=== PATIENT | female | born 1960 | race Caucasian/White ===

== ENCOUNTER 2019-04-04 13:24 | Emergency (ER) | payer MEDICAID ==
[~2019-04-04] VITALS: Ht 160 cm; Wt 72.7 kg
[2019-04-04] MEDS ORDERED: INSHUMULINR (13:55)
[2019-04-04] MEDS ORDERED: KAPSPARGO SPRI100 MG PO (13:56)
[2019-04-04] MEDS ORDERED: TIROSINT137 MC1 PO (13:56)
[2019-04-04] MEDS ORDERED: PRAVACHOL 20MG20 MG PO (13:57)
[2019-04-04] MEDS ORDERED: EFFEXOR-XR150 MG PO (13:57)
[2019-04-04] MEDS ORDERED: GLUCOPHAGE500 MG/TAB PO (13:57)
[2019-04-04] MEDS ORDERED: PRINZIDE 25 MG-1 TAB PO (13:58)
[2019-04-04] MEDS ORDERED: NITROSTAT0.4 MG/TAB (13:58)
[2019-04-04] MEDS ORDERED: PLAVIX 75MG TAB75 MG PO (13:58)
[2019-04-04] MEDS ORDERED: NEURONTIN100 MG/CAP PO (13:59)
[2019-04-04] MEDS ORDERED: ISORDIL 20MG20 M1 (14:00)
[2019-04-04] MEDS ORDERED: KCL100IV PO (14:00)
[2019-04-04] MEDS ORDERED: NATURAL MAGNES200 MG PO (14:01)
[2019-04-04] MEDS ORDERED: ASPIRIN 32325 MG/TAB PO (14:01)
[2019-04-04 15:16] LABS: COLLECTION METHOD CLEAN CATCH
[2019-04-04 15:24] LABS: BASO % 0.5 % (0.0-2.0); EOS # 0.1 (0.0-0.7); EOS % 0.6 % (0-4.0); GRAN # 5.8 (1.4-6.5); GRAN % 66.9 % (42.2-75.2); LYMPH # 2.2 (1.2-3.4); LYMPH % 25.9 % (20.0-51.0); MEAN CELL VOLUME 88 fl (80.0-100.0); MEAN CORPUSCULAR HEMOGLOBIN 29 pg (27.0-31.0); MEAN CORPUSCULAR HGB CONC 33 g/dl (33.0-37.0); MEAN PLATELET VOLUME 9.9 fl (7.4-10.4); MONO # 0.5 (0.1-0.6); MONO % 5.8 % (1.7-9.3); PLATELET COUNT 254 K/mm3 (130-400); RED BLOOD COUNT 5.12 M/mm3 (4.10-5.30); REDCELL DISTRIBUTION WIDTH-CV 12.9 % (11.5-14.5)
[2019-04-04 15:26] LABS: PH 6 (5-8); SQUAMOUS EPITHELIAL 0-2 /hpf; URINE APPEARANCE Clear; URINE BACTERIA None Seen /hpf; URINE BILIRUBIN Negative (NEGATIVE); URINE BLOOD 1+ (NEGATIVE); URINE COLOR Straw; URINE GLUCOSE 3+ (NEGATIVE); URINE KETONE Trace (NEGATIVE); URINE LEUKOCYTE ESTERASE Negative (NEGATIVE); URINE NITRATE Negative (NEGATIVE); URINE PROTEIN(semi-quant) 1+ (NEGATIVE); URINE RBC 0-2 /hpf; URINE UROBILINOGEN Negative (NEGATIVE)
[2019-04-04 15:34] LABS: ALBUMIN 4.6 gm/dL (3.5-5.0); BILIRUBIN,TOTAL 0.7 mg/dL (0.0-1.0); C-REACTIVE PROTEIN 1.5 mg/dL (0.0-0.9); CALCIUM 9.8 mg/dL (8.4-10.2); CREATININE, serum 0.85 (0.52-1.25); POTASSIUM 4.5 mmol/L (3.4-5.0); TOTAL PROTEIN 8.5 gm/dL (6.4-8.2)
[2019-04-04 15:42] LABS: TROPONIN-I 0.03 ng/mL (0.000-0.035)
[2019-04-04 17:43] VITALS: BP 146/79; PULSE 94; TEMP 98.2
== END 2019-04-04 17:44 | disposition home or self-care (01) ==
LOC: COL.ER 13:24
PROVIDERS: Emergency Medicine
DX: E11.65 Type 2 diabetes mellitus with hyperglycemia (principal); I10 Essential (primary) hypertension; E78.00 Pure hypercholesterolemia, unspecified; Z79.4 Long term (current) use of insulin; Z87.891 Personal history of nicotine dependence; Z79.82 Long term (current) use of aspirin
CPT/HCPCS: J1815; J7030

== ENCOUNTER → 2019-05-07 | Outpatient (CLI) | payer MEDICAID ==
[~2019-05-07] MED LIST: ASPIRIN 32325 MG/TAB PO; EFFEXOR-XR150 MG PO; GLUCOPHAGE500 MG/TAB PO; INSHUMULINR; ISORDIL 20MG20 M1; KAPSPARGO SPRI100 MG PO; KCL100IV PO; NATURAL MAGNES200 MG PO; NEURONTIN100 MG/CAP PO; NITROSTAT0.4 MG/TAB; PLAVIX 75MG TAB75 MG PO; PRAVACHOL 20MG20 MG PO; PRINZIDE 25 MG-1 TAB PO; TIROSINT137 MC1 PO
[2019-05-07 08:51] LABS: HEMATOCRIT 41.3 % (37.0-47.0); HEMOGLOBIN 13.5 g/dl (12.5-16.0); MEAN CELL VOLUME 90 fl (80.0-100.0); MEAN CORPUSCULAR HEMOGLOBIN 29 pg (27.0-31.0); MEAN CORPUSCULAR HGB CONC 33 g/dl (33.0-37.0); MEAN PLATELET VOLUME 9.1 fl (7.4-10.4); PLATELET COUNT 279 K/mm3 (130-400); RED BLOOD COUNT 4.61 M/mm3 (4.10-5.30); REDCELL DISTRIBUTION WIDTH-CV 13.7 % (11.5-14.5)
[2019-05-07 09:04] LABS: ALBUMIN 3.9 gm/dL (3.5-5.0); BILIRUBIN,TOTAL 0.5 mg/dL (0.0-1.0); CALCIUM 9.1 mg/dL (8.4-10.2); CHOLESTEROL RISK RATIO 3.2; CREATININE, serum 0.66 (0.52-1.25); POTASSIUM 4.5 mmol/L (3.4-5.0); TOTAL PROTEIN 7.1 gm/dL (6.4-8.2)
[2019-05-07 09:34] LABS: THYROID STIMULATING HORMONE 0.47 uIU/mL (0.465-4.680)
== END ==
LOC: COL.LAB 08:19
DX: E11.9 Type 2 diabetes mellitus without complications (principal); E78.00 Pure hypercholesterolemia, unspecified

== ENCOUNTER 2019-07-09 19:18 | Emergency (ER) | payer SELFPAY ==
[~2019-07-09] VITALS: Ht 162.6 cm; Wt 68.2 kg
[~2019-07-09 19:18] MED LIST changes: -ISORDIL 20MG20 M1; +ISORDIL 20MG20 M1 PO; -NEURONTIN100 MG/CAP PO; +NEURONTIN300 MG/CAP PO; +TIROSINT125 MC1 PO; -TIROSINT137 MC1 PO
[2019-07-09 19:36] VITALS: TEMP 98.4
[2019-07-09 21:39] LABS: BASO % 0.3 % (0.0-2.0); EOS # 0.1 (0.0-0.7); GRAN # 3.7 (1.4-6.5); GRAN % 48.6 % (42.2-75.2); HEMATOCRIT 42.3 % (37.0-47.0); HEMOGLOBIN 14.2 g/dl (12.5-16.0); LYMPH # 3.3 (1.2-3.4); LYMPH % 43.1 % (20.0-51.0); MEAN CELL VOLUME 87 fl (80.0-100.0); MEAN CORPUSCULAR HEMOGLOBIN 29 pg (27.0-31.0); MEAN CORPUSCULAR HGB CONC 34 g/dl (33.0-37.0); MEAN PLATELET VOLUME 9.1 fl (7.4-10.4); MONO # 0.5 (0.1-0.6); MONO % 6.7 % (1.7-9.3); PLATELET COUNT 258 K/mm3 (130-400); RED BLOOD COUNT 4.87 M/mm3 (4.10-5.30)
[2019-07-09 21:51] LABS: ALANINE AMINOTRANSFERASE 15 U/L (9-52); ALBUMIN 3.3 gm/dL (3.5-5.0); ALKALINE PHOSPHATASE 99 U/L (50-136); ANION GAP 7 mmol/L (7-16); AST,SGOT 20 U/L (15-37); BILIRUBIN,TOTAL 0.2 mg/dL (0.0-1.0); BLOOD UREA NITROGEN 13 mg/dL (7-17); CALCIUM 8.7 mg/dL (8.4-10.2); CARBON DIOXIDE 29 mmol/L (22-30); CHLORIDE 99 mmol/L (98-107); CREATININE, serum 0.77 (0.52-1.25); GLUCOSE 185 mg/dL (74-106); POTASSIUM 3.1 mmol/L (3.4-5.0); SODIUM 135 mmol/L (137-145); TOTAL PROTEIN 6.4 gm/dL (6.4-8.2)
[2019-07-09 22:15] LABS: TROPONIN-I < 0.012 ng/mL (0.000-0.035)
[2019-07-09 22:40] LABS: COLLECTION METHOD CLEAN CATCH
[2019-07-09 22:49] LABS: MUCOUS Present /lpf; PH 5 (5-8); SQUAMOUS EPITHELIAL 0-2 /hpf; URINE APPEARANCE Hazy; URINE BACTERIA Rare /hpf; URINE BILIRUBIN Negative (NEGATIVE); URINE BLOOD 1+ (NEGATIVE); URINE COLOR Yellow; URINE GLUCOSE 1+ (NEGATIVE); URINE KETONE Negative (NEGATIVE); URINE LEUKOCYTE ESTERASE 1+ (NEGATIVE); URINE NITRATE Negative (NEGATIVE); URINE PROTEIN(semi-quant) 2+ (NEGATIVE); URINE UROBILINOGEN Negative (NEGATIVE)
[2019-07-09] MEDS ORDERED: NOVOLIN R100 U/ML SQ (23:16)
[2019-07-09] MEDS ORDERED: INSULIN N (N100 U/ML SQ (23:16)
[2019-07-09] MEDS ORDERED: GLUCOPHAGE500 MG/TAB PO (23:44)
[2019-07-09] MEDS ORDERED: TOPROL XL100 MG PO (23:44)
[2019-07-09] MEDS ORDERED: CEFTIN 250250 MG/TAB PO (23:46)
[2019-07-10] MEDS ORDERED: LEVOXYL0.125 MG PO (00:20)
[2019-07-10 00:30] VITALS: BP 146/65; PULSE 84
== END 2019-07-10 00:39 | disposition home or self-care (01) ==
LOC: COL.ER 19:18
PROVIDERS: Nurse Practitioner
DX: N39.0 Urinary tract infection, site not specified (principal); R42 Dizziness and giddiness; E03.9 Hypothyroidism, unspecified; E78.5 Hyperlipidemia, unspecified; F41.9 Anxiety disorder, unspecified; I25.10 Atherosclerotic heart disease of native coronary artery without angina pectoris; E11.9 Type 2 diabetes mellitus without complications; Z90.89 Acquired absence of other organs; Z95.9 Presence of cardiac and vascular implant and graft, unspecified; Z87.891 Personal history of nicotine dependence; Z79.4 Long term (current) use of insulin
CPT/HCPCS: A4216; J0696; J7030

== ENCOUNTER 2019-09-16 20:00 | Emergency (ER) | payer SELFPAY ==
[~2019-09-16] VITALS: Ht 160 cm; Wt 67.3 kg
[~2019-09-16 20:00] MED LIST changes: +CEFTIN 250250 MG/TAB PO; +INSULIN N (N100 U/ML SQ; +LEVOXYL0.125 MG PO; +NOVOLIN R100 U/ML SQ; +TOPROL XL100 MG PO
[2019-09-16 20:08] VITALS: BP 196/88; TEMP 97.3
[2019-09-16 21:11] LABS: ALBUMIN 3.8 gm/dL (3.5-5.0); BILIRUBIN,TOTAL 0.5 mg/dL (0.0-1.0); C-REACTIVE PROTEIN 2.7 mg/dL (0.0-0.9); CALCIUM 8.7 mg/dL (8.4-10.2); CREATININE, serum 0.8 (0.52-1.25); POTASSIUM 3.7 mmol/L (3.4-5.0)
[2019-09-16 21:14] LABS: BASO % 0.5 % (0.0-2.0); EOS % 0.5 % (0-4.0); GRAN # 2.3 (1.4-6.5); GRAN % 56.2 % (42.2-75.2); HEMATOCRIT 44.9 % (37.0-47.0); HEMOGLOBIN 14.6 g/dl (12.5-16.0); LYMPH # 1.2 (1.2-3.4); LYMPH % 28.5 % (20.0-51.0); MEAN CELL VOLUME 89 fl (80.0-100.0); MEAN CORPUSCULAR HEMOGLOBIN 29 pg (27.0-31.0); MEAN CORPUSCULAR HGB CONC 33 g/dl (33.0-37.0); MEAN PLATELET VOLUME 9.4 fl (7.4-10.4); MONO # 0.6 (0.1-0.6); MONO % 14.1 % (1.7-9.3); PLATELET COUNT 190 K/mm3 (130-400); RED BLOOD COUNT 5.07 M/mm3 (4.10-5.30); REDCELL DISTRIBUTION WIDTH-CV 13.5 % (11.5-14.5)
[2019-09-16 21:38] LABS: COLLECTION METHOD CLEAN CATCH
[2019-09-16 21:44] LABS: PH 6 (5-8); SQUAMOUS EPITHELIAL 0-2 /hpf; URINE APPEARANCE Clear; URINE BACTERIA None Seen /hpf; URINE BILIRUBIN Negative (NEGATIVE); URINE BLOOD 1+ (NEGATIVE); URINE COLOR Straw; URINE GLUCOSE 3+ (NEGATIVE); URINE KETONE Negative (NEGATIVE); URINE LEUKOCYTE ESTERASE Negative (NEGATIVE); URINE NITRATE Negative (NEGATIVE); URINE PROTEIN(semi-quant) 2+ (NEGATIVE); URINE RBC 0-2 /hpf; URINE UROBILINOGEN Negative (NEGATIVE)
[2019-09-16 22:01] VITALS: PULSE 77
== END 2019-09-16 22:01 | disposition home or self-care (01) ==
LOC: COL.ER 20:00
PROVIDERS: Family Medicine
DX: J10.1 Influenza due to other identified influenza virus with other respiratory manifestations (principal); I10 Essential (primary) hypertension; I25.10 Atherosclerotic heart disease of native coronary artery without angina pectoris; Z79.4 Long term (current) use of insulin; Z79.82 Long term (current) use of aspirin; Z79.02 Long term (current) use of antithrombotics/antiplatelets
CPT/HCPCS: J1885; J2405; J7030

== ENCOUNTER → 2020-03-22 | Outpatient (CLI) | payer OTHER | LOC: MC.RAD 12:44 | DX: N63.10 Unspecified lump in the right breast, unspecified quadrant (principal); N63.20 Unspecified lump in the left breast, unspecified quadrant ==

== ENCOUNTER 2021-01-13 08:38 | Day surgery (SDC) | payer MEDICARE ==
[~2021-01-13] VITALS: Ht 160 cm; Wt 75.6 kg
[2021-01-13] VITALS (11 sets, daily range): BP systolic 105–162; BP diastolic 58–88; PULSE 78–95; TEMP 98.6
[~2021-01-13 08:38] MED LIST changes: +HUMALOG PEN100 U/ML SQ; -INSULIN N (N100 U/ML SQ; -KCL100IV PO; +LANTUS SOLOS100 U/ML SQ; +LIPITOR 40MG TA40 MG PO; +MAG-OX 400400 MG/TAB PO; -NATURAL MAGNES200 MG PO; +NATURAL POTASS595 MG PO; -NOVOLIN R100 U/ML SQ; -PRAVACHOL 20MG20 MG PO; -TIROSINT125 MC1 PO; +TIROSINT137 MC1 PO
[2021-01-13 09:34] LABS: HEMATOCRIT 40.8 % (37.0-47.0); HEMOGLOBIN 13.8 g/dl (12.5-16.0); MEAN CELL VOLUME 86 fl (80.0-100.0); MEAN CORPUSCULAR HEMOGLOBIN 29 pg (27.0-31.0); MEAN CORPUSCULAR HGB CONC 34 g/dl (33.0-37.0); PLATELET COUNT 281 K/mm3 (130-400); RED BLOOD COUNT 4.72 M/mm3 (4.10-5.30)
[2021-01-13 09:42] LABS: PROTHROMBIN TIME 11.4 SECONDS (9.7-12.8)
[2021-01-13 09:44] LABS: PARTIAL THROMBOPLASTIN TIME 27.6 SECONDS (26.0-37.0)
--- NOTE | 2021-01-13 10:20 | NUR ---
Chemstry lab not resulted yet, Dr. Mitchell made aware and states ok to proceed to lab at this time. Lab called for results, Rhianna, states will be resulted shortly.
[2021-01-13] MEDS ORDERED: HCTZ12.5TAB PO (10:28)
[2021-01-13] MEDS ORDERED: CLARITIN 1010 MG/TAB PO (10:29)
[2021-01-13] MEDS ORDERED: PRINIVIL10 MG PO (10:29)
[2021-01-13] MEDS ORDERED: VITAMIN D 50,1.25 MG PO (10:29)
[2021-01-13 10:38] LABS: CALCIUM 9.3 mg/dL (8.4-10.2); CREATININE, serum 1.02 (0.52-1.25); POTASSIUM 3.5 mmol/L (3.4-5.0)
--- NOTE | 2021-01-13 11:20 | NUR ---
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 pt is awake and alert, pwd, resp reg and unlabored. nsr on monitor, telemetry initiated. daughter at bs. call light in reach. TR band in place, cms intact. wctm. lunch ordered.
--- NOTE | 2021-01-13 12:18 | NUR ---
ECHOCARDIOGRAM IN PROGRESS.
[2021-01-13] MEDS ORDERED: ASPIRIN E.C. 8181 MG PO (14:08)
[2021-01-13] MEDS ORDERED: LIPITOR 80MG80 MG PO (14:08)
--- NOTE | 2021-01-13 15:15 | NUR ---
Pt is ready to go home. TR band has been deflated, and puncture site dressed as usual with bandaid, folded 2x2 and coban cms remains intact distal. pt has been up and ambulatory in room with steady gait, no dizziness etc. IV was dc'd with cath intact, dressing was applied. I reviewed dc/rx and fu instructions with pt and her daughter. they denied questions at time of departure. to exit via wheelchair.
== END 2021-01-13 17:10 | disposition home or self-care (01) ==
LOC: COL.CAR 08:38
PROVIDERS: Internal Medicine Cardiovascular Disease
DX: I25.10 Atherosclerotic heart disease of native coronary artery without angina pectoris (principal); I25.2 Old myocardial infarction; E03.9 Hypothyroidism, unspecified; I10 Essential (primary) hypertension; E11.9 Type 2 diabetes mellitus without complications; I73.9 Peripheral vascular disease, unspecified; Z20.822 Contact with and (suspected) exposure to COVID-19
CPT/HCPCS: C1769; J1644; J2250; J3010; Q9967

== ENCOUNTER → 2021-04-27 | Outpatient (CLI) | payer MEDICARE ==
[~2021-04-27] MED LIST changes: +ASPIRIN E.C. 8181 MG PO; +CLARITIN 1010 MG/TAB PO; +HCTZ12.5TAB PO; +LIPITOR 80MG80 MG PO; +PRINIVIL10 MG PO; +VITAMIN D 50,1.25 MG PO
[2021-04-27 12:59] LABS: HEMATOCRIT 42.1 % (37.0-47.0); HEMOGLOBIN 14.1 g/dl (12.5-16.0); MEAN CELL VOLUME 88 fl (80.0-100.0); MEAN CORPUSCULAR HEMOGLOBIN 29 pg (27.0-31.0); MEAN CORPUSCULAR HGB CONC 34 g/dl (33.0-37.0); MEAN PLATELET VOLUME 9.1 fl (7.4-10.4); PLATELET COUNT 329 K/mm3 (130-400)
[2021-04-27 13:12] LABS: ALBUMIN 3.1 gm/dL (3.4-4.8); BILIRUBIN,TOTAL 0.5 mg/dL (0.2-1.2); CALCIUM 9.3 mg/dL (8.4-10.2); CREATININE, serum 0.81 mg/dL (0.57-1.11); POTASSIUM 3.9 mmol/L (3.5-4.5); TOTAL PROTEIN 7.2 gm/dL (6.2-8.1)
[2021-04-27 13:15] LABS: INR 0.9 (0.8-3.0); PROTHROMBIN TIME 9.8 SECONDS (9.7-12.8)
[2021-04-27 13:17] LABS: PARTIAL THROMBOPLASTIN TIME 18.3 SECONDS (26.0-37.0)
== END ==
LOC: COL.LAB 11:51
DX: Z01.810 Encounter for preprocedural cardiovascular examination (principal); I25.10 Atherosclerotic heart disease of native coronary artery without angina pectoris